=== PATIENT | male | born 1965 | race Caucasian/White ===

== ENCOUNTER 2017-08-04 15:57 | Inpatient (IN) | payer BC ==
[2017-08-04 16:41] VITALS: BMI 38.0
[2017-08-04 17:00] LABS: Absolute Lymphocytes (CBC) 3.6 K/uL (0.7-4.9); Absolute Monocytes 0.9 K/uL (0.1-1.3); Absolute Neutrophil 5.3 K/uL (1.8-8.0); Hematocrit 48.5 % (39.6-49.0); Lymphocytes % 33.8 % (15.3-44.8); MCH 31.8 pg (27.0-35.0); MCV 95.9 fL (80-100); MPV 8.8 fL (7.6-11.3); Monocytes % 8.8 % (3.3-12.3); RBC Red Blood Cell Count 5.06 M/uL (4.33-5.43)
[2017-08-04 17:48] LABS: Potassium 3.6 mEq/L (3.6-5.0)
[2017-08-04 17:51] LABS: Albumin 3.8 g/dL (3.2-5.5); Bilirubin Total 0.3 mg/dL (0.3-1.2); Protein, Total 6.9 g/dL (6.0-8.3)
[2017-08-04] MEDS: ENOXAPARIN 100 MG/ML SYR SQ SCH (17:53)
[2017-08-04] MEDS ORDERED: ASPIRIN 81 MG CHEWABLE TABLET PO ONE (18:41)
[2017-08-04] MEDS: MORPHINE 4 MG/ML SYR IV PRN (18:50)
--- NOTE | 2017-08-04 20:03 | RAD REPORT ---
EXAM DESCRIPTION: Jose Lau (2 Views)08/04/2017 7:53 pm CLINICAL HISTORY: Chest pain COMPARISON: August 2016 FINDINGS: The lungs appear clear of acute infiltrate. The heart is normal size IMPRESSION: No acute abnormalities displayed
[2017-08-04] MEDS: ALPRAZOLAM 1 MG TABLET PO SCH (20:46)
[2017-08-04] MEDS: METOPROLOL TAR 50 MG TAB PO SCH (20:46)
[2017-08-05] MEDS ORDERED: REGADENOSON 0.4 MG/5 ML SYR IV ONE (07:25)
[2017-08-05] MEDS: ALLOPURINOL 300 MG TAB PO SCH ×2 (09:00→14:10)
[2017-08-05] MEDS: LEVOTHYROXINE SOD 0.1 MG TAB PO SCH ×2 (09:00→14:10)
[2017-08-05] MEDS: ESCITALOPRAM 20 MG TAB PO SCH ×2 (09:00→14:10)
[2017-08-05] MEDS: ALPRAZOLAM 1 MG TABLET PO SCH ×3 (09:00→21:26)
[2017-08-05] MEDS: ENOXAPARIN 100 MG/ML SYR SQ SCH ×2 (09:39→21:26)
[2017-08-05 11:43] LABS: Urine Appearance CLEAR; Urine Blood NEGATIVE (NEG); Urine Color DK YELLOW; Urine Glucose NEGATIVE (NEG); Urine Protein NEGATIVE (NEG); Urine Specific Gravity 1.025 (1.005-1.030); Urine Urobilinogen 0.2 mg/dL (0.2-1.0)
[2017-08-05 11:48] LABS: Urine Microscopic Reflex NO UMIC
[2017-08-05 11:49] LABS: Urine Bilirubin 1+ (NEG)
[2017-08-05] MEDS: MORPHINE 4 MG/ML SYR IV PRN ×2 (13:35→19:13)
--- NOTE | 2017-08-05 14:18 | RAD REPORT ---
EXAM DESCRIPTION: NM - Rest Stress Cardiac Imaging - 08/05/2017 1:55 pm CLINICAL HISTORY: Chest pain COMPARISON: None. TECHNIQUE: The patient was administered 11 mCi of Tc 99m Sestamibi prior to resting SPECT imaging of the heart. The patient was then administered 28 mCi of Tc 99m Sestamibi following exercise or pharma cologic stress. Multiplanar SPECT images were reviewed. FINDINGS: The end diastolic volume is 134 ml, the end systolic volume is 55 ml, and the ejection fra ction is 59 %. Exam is technically suboptimal. There is suboptimal imaging on stress sequencing. Focal defects saadia g the inferior wall not substantially different between rest and stress imaging when adjusting for th e artifact. Along the anterior wall small focal defects are seen on stress imaging without a clear co rrelate on the rest sequencing even when adjusting for the technical limitations. IMPRESSION: Exam was technically suboptimal ; however, changes along the anterior wall on the stress sequence are concerning for stress ischemia. Inferior wall fixed defects noted from scarring or diaphragm attenuation. Enlarged end-diastolic volume of 134 milliliters. Ejection fraction is normal at 59%.
--- NOTE | 2017-08-05 16:30 | TREADPHA ---
DX: CHEST PAIN Date of Study: 08/05/17 Ht: 6' 3 " Wt: 304 lb 0 oz Consulting Physician: JOHN MEDICATIONS: ZYLOPRIM, XANAX, LOVENOX, LEXAPRO, TOFRANL, SYNTHROID, LOPRESSOR HISTORY: 51 YEAR OLD MALE WITH COMPLAINTS OF CHEST PAIN. MEDICAL HISTORY OF HYPERTENSION, SMOKER, CHRONIC OBSTRUCTIVE PULMONARY DISEASE, ANXIETY, DEPRESSION PHYSICIAL EXAMINATION: RESTING B.P.: 153/82 RESTING H.R.: 80 RESTING EKG: NORMAL. PROTOCOL: LEXISCAN EXERCISE TIME: 3:30 B.P. AT PEAK STRESS: 168/83 IMPRESSION: LEXISCAN INJECTED, CARDIOLITE INJECTED PER PROTOCOL. SEE NUCLEAR MEDICINE REPORT. NO VENTRICULAR TACHYCARDIA, SUPRA VENTRICULAR TACHYCARDIA. NO PREMATURE VENTRICULAR COMPLEXES. CHEST PAIN STATED 5/10 ON PAIN SCALE, INCREASED TO 10/10 AFTER ADMINISTRATION OF LEXISCAN DECREASED TO 4/10.
[2017-08-05] MEDS ORDERED: MONTELUKAST 10 MG TAB PO SCH (17:30)
[2017-08-05] MEDS ORDERED: IMIPRAMINE HCL 10 MG TAB PO SCH (17:30)
[2017-08-05] MEDS: METOPROLOL TAR 50 MG TAB PO SCH (21:26)
[2017-08-06] MEDS: MORPHINE 4 MG/ML SYR IV PRN ×2 (01:48→08:57)
--- NOTE | 2017-08-06 02:10 | HP ---
Date of Admission: 08/04/2017 Chief Complaint: Intermittent retrosternal pain. History Of Present Illness: A 51-year-old male claims to have had coronary artery disease diagnosed by Flo, who was brought to the office for the first time with intermittent retrosternal chest gloria n. The patient denied any history of fever, chills, rigors, nausea, vomiting. No other associated s ymptoms such as dizziness. In view of recurrence of chest pain, the patient was admitted for observa tion. Past Medical History: As mentioned earlier, the patient was told by Dr. Rossi that he had coronary artery disease. The patient's other medical problems include gout, hypothyroidism, anxiety, upper r espiratory allergies, obesity, depression, and hypertension. Family History: Positive for hypertension. Personal History: The patient has allergies to sulfa drugs. Home Medicines: Please refer to the chart. Review of Systems: No fever, chills, or rigors. Physical Examination: General: Revealed a 51-year-old male, morbidly obese. HEENT: Negative. Neck: Supple. JVD negative. Chest: Clear. Heart: Regular. Abdomen: Soft, nontender. Extremities: No edema. Neurological: Negative. Laboratory Data: CBC normal. Troponin normal. Chem profile normal. Pharmacological stress test, p ossible ischemia. Assessment: 1.Recurrent chest pain with abnormal stress test. 2.History of coronary artery disease. 3.Hypertension. 4.Anxiety. 5.Hypothyroidism. 6.Morbid obesity. Plan: In view of stress test report, the patient will have a Cardiology consultation. RUSSELL/JOHN Voice ID: [id number]
[2017-08-06] MEDS: ENOXAPARIN 100 MG/ML SYR SQ SCH (09:00)
[2017-08-06] MEDS ORDERED: LIDOCAINE 1% 20 ML MDV ONE (09:22)
[2017-08-06] MEDS ORDERED: NA CHLORIDE 0.9% 500 ML ONE (09:41)
[2017-08-06] MEDS ORDERED: HEPA 1000U/500MLS 1,000 UNIT/500 ML BAG IV ONE (09:41)
[2017-08-06] MEDS ORDERED: ATROPINE SULF 1 MG/10 ML SYR IV ONE (10:07)
[2017-08-06] MEDS ORDERED: MIDAZOLAM HCL 2 MG/2 ML INJ ONE ×2 (10:07→11:05)
[2017-08-06] MEDS ORDERED: NA CHLORIDE 0.9% 0 ML ONE (10:07)
[2017-08-06] MEDS: ESCITALOPRAM 20 MG TAB PO SCH (13:37)
[2017-08-06] MEDS: LEVOTHYROXINE SOD 0.1 MG TAB PO SCH (13:37)
[2017-08-06] MEDS: ALLOPURINOL 300 MG TAB PO SCH (13:37)
[2017-08-06] MEDS: ALPRAZOLAM 1 MG TABLET PO SCH (13:38)
[2017-08-06 14:33] VITALS: BP 139/69; TEMP 98; O2SAT 93
--- NOTE | 2017-08-07 12:33 | CON ---
Date of Consultation: 08/06/2017 The patient was admitted on 08/04/2017. I saw the patient on 08/06/2017. Reason For Consultation: Abnormal stress Cardiolite. History Of Present Illness: Mr. Perez is a 51-year-old white male, who was admitted for chest pain that radiated to the right arm. The symptoms lasted for hours. He awakened with chest pain. No na usea, vomiting, diaphoresis, PND, orthopnea, pedal edema, palpitation, or syncope. The patient has a history of anxiety and he said his symptoms got better with Xanax. A stress test, however, was done showing possible anterior ischemia. I was asked to see him to consider a heart catheterization. I discussed the case with Mr. Perez and he agreed to have a heart catheterization. He understands th e risk and the benefit of the procedure. Allergies: INCLUDE SULFA. Review of Systems: Negative. Social History: Negative. Family History: Noncontributory. Medications: At home include BuSpar, Xanax, metoprolol, Singulair, trazodone, Lexapro, omeprazole, a nd levothyroxine. Past Medical History: Include hypertension, hypothyroidism, COPD, and gout. Past Surgical History: He has had appendectomy, cholecystectomy, tonsillectomy and disk surgery in t he past. Physical Examination: Vital Signs: Stable. He was afebrile. HEENT: Negative. Neck: Supple. No bruit, lymphadenopathy, JVD, or thyromegaly. Chest: Clear to auscultation and percussion. Cardiac: Revealed a regular rhythm and rate without any murmurs, gallops, or rubs. Abdomen: Benign. Extremities: Revealed no clubbing, cyanosis, or edema. Diagnostic Data: Unremarkable except for his Cardiolite. Impression And Plan: The patient with multiple cardiac risk factors for heart disease including hype rtension, dyslipidemia. He presumably had a heart attack at one point, but no details available from that history. His symptoms are rather atypical, but nevertheless it did radiate to his right arm an d with this positive Cardiolite, a catheterization was in order. His blood pressure and dyslipidemia seems to be well controlled at this point. The case was discussed with the patient in details, agre es for a catheterization, and understands the risk and the benefit. This will be done today. NB/MODL Voice ID: [id number] Report ID: [id number]
--- NOTE | 2017-08-07 18:42 | OP ---
Surgeon: Jorge Seymour MD Makeup Sales Consultant: Simin Sutherland. Procedures Performed: Heart catheterization, selective coronary arteriogram. Reason For Procedure: Chest pain and a positive Cardiolite. History Of Present Illness: Mr. Perez is a 51-year-old white male admitted to Dr. Doss's service for atypical chest pain. He had a positive stress test. He was brought into the manager cath lab as an inpa tient, prepped and draped in the routine sterile fashion. A 6-[place] sheath was introduced in the [facility] common femoral artery. Six-[place]ian catheters Dayan were used to investigate the left main and t he right main. The patient had normal coronaries. No evidence of significant atherosclerosis. No f ocal stenosis. The patient tolerated the procedure well. Blood loss was 5 cc. Total conscious jeff tion was 30 minutes. Impression And Plan: Atypical chest pain, positive stress test, normal catheterization, continue med ical therapy. The patient can go home after 2 hours of bedrest. Operators: Josie Tucker Voice ID: [id number] Report ID: [id number]
--- NOTE | 2017-08-08 22:48 | EKG ---
Test Date: 2017-08-05 Test Time: 17:20:01 [employer]ed Structures Repairer: LUNA MEASUREMENT RESULTS: Intervals: Rate: 66 NV: 174 QRSD: 74 QT: 426 QTc: 446 [place]: P: 53 NV: 174 QRS: 46 T: 57 INTERPRETIVE STATEMENTS: Normal sinus rhythm Normal ECG Compared to ECG 08/25/2016 06:59:12 Sinus bradycardia no longer present Myocardial infarct finding no longer present Electronically Signed On 08-08-17 22:48:14 CDT by Dilip Siddiqui
== END 2017-08-06 14:42 | disposition home or self-care (01) | DRG 287 ==
LOC: 4TH 16:14 → OBSVTOIN 08-05 14:18 → INTOOBSV 08-05 14:18
PROVIDERS: ADMIT Internal Medicine; ATTEND Internal Medicine
PROC: 4A023N7 Measurement of Cardiac Sampling and Pressure, Left Heart, Percutaneous Approach (ICD-10-PCS; principal; 2017-08-06)
PROC: B201YZZ Plain Radiography of Multiple Coronary Arteries using Other Contrast (ICD-10-PCS; 2017-08-06)
PROC: B205YZZ Plain Radiography of Left Heart using Other Contrast (ICD-10-PCS; 2017-08-06)
DX: R07.89 Other chest pain (principal); R94.39 Abnormal result of other cardiovascular function study; I10 Essential (primary) hypertension; E03.9 Hypothyroidism, unspecified; F41.9 Anxiety disorder, unspecified; M10.9 Gout, unspecified; E66.01 Morbid (severe) obesity due to excess calories; Z68.38 Body mass index [BMI] 38.0-38.9, adult; Z88.2 Allergy status to sulfonamides
CPT/HCPCS: 36415; 71046; 78452; 80053; 80061; 81003; 84484; 85025; 93005; 93017; 93454; A9500; C1760; C1893; G0378; J0583; J1650; J2250; J2785